=== PATIENT | female | born 1980 | race Hispanic/Latino ===

== ENCOUNTER 2016-07-11 08:25 | Outpatient (CLI) | payer MEDICAID ==
--- NOTE | 2016-07-11 12:38 | Magnetic Resonance Report ---
MRI PELVIS WITH AND WITHOUT CONTRAST INDICATION: Malignant neoplasm of breast. COMPARISON: None similar. FINDINGS: Multiplanar and multisequence MRI of the breast performed before and after 20 mL MultiHance intravenously. Normal imaged bowel, marrow and muscle signal. Normal appendix. Few small right lower quadrant lymph nodes measure up to 0.9 cm. Normal urinary bladder. No pelvic ascites or significant adenopathy. Uterus estimated at 9 x 7.6 x 4.3 cm with physiologic endometrial canal fluid. However, few fundal fibroids noted, approximately 1.3 cm anteriorly, sagittal series 15, image 72, approximately 1.1 cm posteriorly, image 81 and the largest superiorly at the fundus measuring 3.7 cm, image 74. An adjacent 2 cm left adnexal/ovarian simple cyst also seen on axial image 15, series 9. Otherwise unremarkable adnexa/ovaries. CONCLUSION: No acute pelvic MRI abnormality with uterine fibroids incidentally noted, as described. Please correlate. Thank you for the opportunity to participate in this patient's care.
== END 2016-07-11 08:26 | disposition home or self-care (01) ==
LOC: SPVIMAG 08:25
PROVIDERS: ATTEND Internal Medicine Hematology & Oncology
DX: D25.9 Leiomyoma of uterus, unspecified (principal); N83.202 Unspecified ovarian cyst, left side
CPT/HCPCS: 72197; A9577